=== PATIENT | female | born 1940 | race Caucasian/White ===

== ENCOUNTER → 2023-07-11 15:22 | Outpatient (CLI) | payer MEDICARE, SELFPAY ==
--- NOTE | 2023-07-11 | DI.CT.S_ITS ---
PROCEDURE: CT WRIST LEFT WITHOUT CON INDICATIONS: Unspecified fracture of the lower end of left radius, initia TECHNIQUE: Noncontrast 1 mm axial sections acquired through the carpal bones, with coronal and sagittal reformats. COMPARISON: [facility] Outside Film, CR, XR WRIST 3+ VIEWS LEFT, 07/07/2023, 13:30. FINDINGS: Image quality: Excellent. Bones: Comminuted intra-articular fracture of the distal radius is again seen as demonstrated on radiographs from 07/07/2023. The fracture is mildly impacted with dorsal angulation of the distal radial articular surface on additional component is seen extending into the distal metadiaphysis. There is a 1-2 mm gap along the fracture line at the distal radial articular surface without step-off. Fracture line also extends into the distal radioulnar joint. Affection results in mild positive ulnar variance. Tiny osseous fragment adjacent to the dorsal tip of the lunate may represent mm placed avulsion fracture. Hamate hook is intact. No scaphoid fracture is seen. Soft tissues: Soft tissue edema is seen surrounding the wrist. Small joint effusions. The articular cartilages, ligaments, and tendons are not well evaluated with standard CT. The musculature surrounding the wrist is normal in bulk. IMPRESSION: 1. Comminuted and impacted intra-articular fracture of the distal radius with dorsal angulation of the distal radial articular surface and resulting positive ulnar variance. 2. Tiny osseous fragment adjacent to the dorsal aspect of the lunate may represent a tiny avulsion fracture. Approved by: Lele Frausto M.D. on 07/11/2023 at 16:05
== END ==
PROVIDERS: PCP Internal Medicine; Referring Provider Physician Assistant; Visit Provider Physician Assistant
DX: S52.572A Other intraarticular fracture of lower end of left radius, initial encounter for closed fracture (principal)
CPT/HCPCS: 73200